=== PATIENT | female | born 1985 | race Asian ===

== ENCOUNTER 2016-07-25 15:56 | Observation (INO) | payer OTHER ==
[~2016-07-25] VITALS: Ht 157.5 cm; Wt 81.6 kg
[2016-07-25 17:39] VITALS: BP_SYST 116
== END 2016-07-25 17:20 | disposition home or self-care (01) ==
LOC: SPU 15:56
PROVIDERS: ADMIT Obstetrics & Gynecology; ATTEND Obstetrics & Gynecology
DX: O36.8130 Decreased fetal movements, third trimester, not applicable or unspecified (principal); Z3A.38 38 weeks gestation of pregnancy
CPT/HCPCS: 59025; 76819; 81002; G0378

== ENCOUNTER 2016-07-28 06:00 | Inpatient (IN) | payer OTHER ==
[~2016-07-28] VITALS: Ht 154.9 cm; Wt 81.6 kg
[2016-07-28] MEDS ORDERED: LR 1,000 ML IV SCH (08:24)
[2016-07-28] MEDS ORDERED: TERBUTALINE SULFATE 1 MG/ML VIAL SUBCUT ONE (08:30)
[2016-07-28] MEDS ORDERED: NALBUPHINE HCL 10 MG/ML AMP IVP PRN (08:30)
[2016-07-28 08:56] VITALS: BP 131/81; PULSE 94; RESP 20; TEMP 99.2
[2016-07-28 09:14] LABS: BASOPHILS % (AUTO) 0.1 % (0.0-2.0); EOSINOPHILS # (AUTO) 0.3 K/uL (0.0-0.4); EOSINOPHILS % (AUTO) 1.7 % (0.0-4.0); HEMATOCRIT 38.7 % (36-48); HEMOGLOBIN 12.6 g/dL (12.0-16.0); LYMPHOCYTES # (AUTO) 2.4 K/uL (1.0-5.5); LYMPHOCYTES % (AUTO) 15.7 % (20.5-51.5); MEAN CORPUSCULAR HEMOGLOBIN 28 pg (27-31); MEAN CORPUSCULAR HGB CONC 33 % (32-36); MEAN CORPUSCULAR VOLUME 86 fL (79.0-98.0); MONOCYTES # (AUTO) 0.9 K/uL (0.0-1.0); MONOCYTES % (AUTO) 5.9 % (1.7-9.3); NEUTROPHILS # (AUTO) 11.4 K/uL (1.8-7.7); NEUTROPHILS % (AUTO) 76.6 % (40.0-70.0); PLATELET COUNT (AUTO) 286 K/uL (130-430); RED CELL DISTRIBUTION WIDTH 14.3 % (9.0-15.0)
[2016-07-28] MEDS ORDERED: FENT2mCg/mL-ROPIVA0.2%/NS EPID 150 ML EP ONE ×2 (11:10→19:14)
[2016-07-28] MEDS ORDERED: OXYTOCIN/NORMAL SALINE 1,000 ML IV SCH (12:08)
[2016-07-28] MEDS ORDERED: LIDOCAINE PF 1% 30ML(POUR BTL) INJ ONE (19:00)
[2016-07-28] MEDS ORDERED: BUPIVACAINE /PF 0.25% 30 ML VIAL INJ ONE (19:00)
[2016-07-28] MEDS ORDERED: MINERAL OIL 30 ML UDC ONE (19:00)
[2016-07-28] MEDS ORDERED: AMPICILLIN SODIUM 2 GM in NS 100 ML IV SCH (20:00)
[2016-07-28] MEDS ORDERED: AMPICILLIN SODIUM 2 GM VIAL ONE (20:29)
[2016-07-29] MEDS ORDERED: AMPICILLIN SODIUM 1 GM in NS 50 ML IV SCH (00:30)
[2016-07-29] MEDS ORDERED: AMPICILLIN SODIUM 1 GM VIAL ONE (00:38)
[2016-07-29] MEDS ORDERED: OXYTOCIN/NORMAL SALINE 1,000 ML IV ONE (03:05)
[2016-07-29] MEDS ORDERED: OXYTOCIN/NORMAL SALINE 1,000 ML IV SCH (03:05)
[2016-07-29] MEDS ORDERED: GLYCERIN/WITCH HAZEL (TUCKS PADS) TP PRN (03:15)
[2016-07-29] MEDS ORDERED: METHYLERGONOVINE MALEATE 0.2 MG TABLET PO PRN (03:15)
[2016-07-29] MEDS ORDERED: ANUSOL 1 EA SUPP.RECT (PREPARATION H) RC PRN (03:15)
[2016-07-29] MEDS ORDERED: LANOLIN 7 GM OINT. TP PRN (03:15)
[2016-07-29] MEDS ORDERED: HYDROCORTISONE 0.5%, 28.35 GM TOPICAL CREAM TP PRN (03:15)
[2016-07-29] MEDS ORDERED: DERMOPLAST SPRAY TP PRN (03:15)
[2016-07-29] MEDS ORDERED: MEASLES,MUMPS&RUBELLA VACC/PF 12500 UNIT/0.5 ML VIAL SUBQ PRN (03:15)
[2016-07-29] MEDS ORDERED: RHO(D) IMMUNE GLOBULIN/MALTOSE 1500 UNITS/1.3 ML (WINHRO) IM PRN (03:15)
[2016-07-29] MEDS ORDERED: OXYCODONE/ACETAMINOPHEN 5-325 TABLET PO PRN (03:15)
[2016-07-29] MEDS ORDERED: SENNOSIDES/DOCUSATE SODIUM 1 TAB TABLET(SENOKOT-S) PO PRN (03:15)
[2016-07-29] MEDS: OXYCODONE/ACETAMINOPHEN 5-325 TABLET PO PRN ×2 (03:36→21:56)
[2016-07-29] MEDS: IBUPROFEN 600 MG TABLET PO SCH ×3 (06:15→17:48)
[2016-07-29] MEDS ORDERED: AMPICILLIN SODIUM 2 GM in NS 100 ML IV ONE (20:00)
[2016-07-29] MEDS ORDERED: TEMAZEPAM 15 MG CAPSULE PO PRN (21:00)
[2016-07-29] MEDS: DOCUSATE SODIUM 100 MG CAPSULE PO PRN (21:56)
[2016-07-30] MEDS: IBUPROFEN 600 MG TABLET PO SCH ×3 (00:14→12:50)
[2016-07-30 06:49] LABS: BASOPHILS % (AUTO) 0.2 % (0.0-2.0); EOSINOPHILS # (AUTO) 0.3 K/uL (0.0-0.4); EOSINOPHILS % (AUTO) 1.7 % (0.0-4.0); HEMATOCRIT 27.3 % (36-48); HEMOGLOBIN 8.9 g/dL (12.0-16.0); LYMPHOCYTES # (AUTO) 3.5 K/uL (1.0-5.5); LYMPHOCYTES % (AUTO) 17.7 % (20.5-51.5); MEAN CORPUSCULAR HEMOGLOBIN 29 pg (27-31); MEAN CORPUSCULAR HGB CONC 33 % (32-36); MEAN CORPUSCULAR VOLUME 88 fL (79.0-98.0); MONOCYTES # (AUTO) 1.4 K/uL (0.0-1.0); MONOCYTES % (AUTO) 7.1 % (1.7-9.3); NEUTROPHILS # (AUTO) 14.4 K/uL (1.8-7.7); NEUTROPHILS % (AUTO) 73.3 % (40.0-70.0); PLATELET COUNT (AUTO) 221 K/uL (130-430); RED BLOOD CELL COUNT(AUTO) 3.11 MIL/uL (4.2-6.2); RED CELL DISTRIBUTION WIDTH 14.6 % (9.0-15.0); WHITE BLOOD COUNT (AUTO) 19.6 K/uL (4.8-10.8)
[2016-07-30] MEDS: DOCUSATE SODIUM 100 MG CAPSULE PO PRN (09:08)
[2016-07-30] MEDS: OXYCODONE/ACETAMINOPHEN 5-325 TABLET PO PRN (09:08)
== END 2016-07-30 14:00 | disposition home or self-care (01) | DRG 775 ==
LOC: SPU 06:00
PROVIDERS: ADMIT Obstetrics & Gynecology; ATTEND Obstetrics & Gynecology
PROC: 10D07Z6 Extraction of Products of Conception, Vacuum, Via Natural or Artificial Opening (ICD-10-PCS; principal; 2016-07-29)
PROC: 0W8NXZZ Division of Female Perineum, External Approach (ICD-10-PCS; 2016-07-29)
PROC: 3E0S3CZ (ICD-10-PCS; 2016-07-29)
PROC: 00HU33Z Insertion of Infusion Device into Spinal Canal, Percutaneous Approach (ICD-10-PCS; 2016-07-29)
DX: O69.81X0 Labor and delivery complicated by cord around neck, without compression, not applicable or unspecified (principal); O42.92 Full-term premature rupture of membranes, unspecified as to length of time between rupture and onset of labor; Z3A.38 38 weeks gestation of pregnancy; Z37.0 Single live birth
CPT/HCPCS: 36415; 81002-TC; 85025; 86592; 86886; 86900; 86901; 94760; J0290; J2001; J2300; J2590; J3010; J3490; J7120